=== PATIENT | female | born 1950 | race Caucasian/White ===

== ENCOUNTER → 2019-04-29 | Outpatient (CLI) | payer OTHER ==
[~2019-04-29] MED LIST: SINCALIDE 1.72 MCG in IV NORMAL SALINE 50ML 30 ML IV ONE
--- NOTE | 2019-05-01 11:17 | RAD ---
NM HEPATOBILIARY SCAN W PHARM History: Epigastric pain, nausea, post meal pain Comparison: None. Findings: Hepatobiliary examination was performed, patient injected with 5.5 mCi technetium 99m Choletec. 1.72 mcg of Kinevac were infused, gallbladder ejection fraction calculated. There is normal radiotracer activity of the liver, common bile duct, and in the small bowel. There is normal visualization of the gallbladder beginning at about 15 to 20 minutes. Gallbladder ejection fraction is within normal limits, estimated at 68%. Impression: 1. There is normal visualization of the gallbladder and a normal gallbladder ejection fraction. Electronically signed by: Fredi Ennis MD (05/01/2019 11:14 AM) [id number]
== END | disposition home or self-care (01) ==
LOC: NM 10:34
PROVIDERS: ATTEND Internal Medicine Gastroenterology
DX: R11.0 Nausea (principal); R10.13 Epigastric pain
CPT/HCPCS: 78227; A9537; J2805